=== PATIENT | male | born 1985 | race Caucasian/White ===

== ENCOUNTER 2020-11-06 16:53 | Emergency (ER) | payer BC, OTHER ==
--- OUTSIDE RECORDS SUMMARY | 2020-11-06 16:55 | XMS REPORT | Continuity of Care Document ---
:1985 Author Organization [facility] t Address [address] [place] [address] Dr. Lewis [address] [place] [id number] Care Team Providers Name Role Phone Leanne BOBO, C Attending Clinician Unavailable Pob1, [facility] Attending Clinician Unavailable Problems This patient has no known problems. Allergies, Adverse Reactions, Alerts This patient has no known allergies or adverse reactions. Medications This patient has no known medications. Procedures This patient has no known procedures. Encounters Start End Encounter Admission Attending Care Care Encounter Source Date/Time Date/Time Type Type Clinicians Facility Department ID 2019-07-02 2019-07-02 Telephone LUIS A Perdomo [id number] 00:00:00 00:00:00 Arline ANDRADE [id number] [facility] [id number] 2019-06-30 2019-06-30 Urgent Pob1, Acute [facility] [id number] 12:35:12 12:55:12 [facility] [id number] [place] [id number] [facility] [phone] [address]al [address] One Results This patient has no known results.
--- NOTE | 2020-11-06 18:33 | RAD REPORT ---
EXAM DESCRIPTION: RAD - Chest Pa And Lat (2 Views) - 11/06/2020 6:25 pm CLINICAL HISTORY: SOB Chest pain. COMPARISON: No comparisons FINDINGS: Moderate bilateral pulmonary opacities are present compatible with COVID-19 infection. The heart is normal in size. No displaced fractures.
[2020-11-06 20:25] LABS: Absolute Lymphocytes (CBC) 0.6 K/uL (0.7-4.9); Basophils % 0.3 % (0-1.3); Hematocrit 42.8 % (39.6-49.0); Lymphocytes % 12.7 % (15.3-44.8); MPV 8.4 fL (7.6-11.3)
[2020-11-06 20:30] LABS: Protime INR 1.19
[2020-11-06] MEDS ORDERED: NA CHLORIDE 0.9% 500 ML ONE (20:42)
[2020-11-06] MEDS ORDERED: ASPIRIN 81 MG CHEWABLE TABLET ONE (20:42)
[2020-11-06] MEDS ORDERED: CEFTRIAXONE/SWI 1gm 1 GM/10 ML SYR ONE (20:43)
[2020-11-06] MEDS ORDERED: FAMOTIDINE 20 MG/2 ML VIAL IV ONE (20:43)
[2020-11-06] MEDS ORDERED: IBUPROFEN 400 MG TAB ONE (21:51)
[2020-11-06] MEDS ORDERED: NA CHLORIDE 0.9% 1,000 ML ONE (21:51)
[2020-11-06] MEDS ORDERED: dexAMETHasone 10 MG/ML VIAL ONE (22:22)
[2020-11-06] MEDS ORDERED: ALBUTEROL INHALER 60 PUFF/8 GM IH ONE (22:22)
[2020-11-06 22:57] LABS: ALT/SGPT 37 U/L (12-78); AST/SGOT 49 U/L (15-37); Albumin 3.5 g/dL (3.4-5.0); Alkaline Phosphatase 62 U/L (45-117); BUN Blood Urea Nitrogen 14 mg/dL (7-18); Bicarbonate 26 mmol/L (21-32); Bilirubin Direct 0.1 mg/dL (0-0.2); Bilirubin Total 0.3 mg/dL (0.2-1.0); Ferritin 300.4 ng/mL (26-388); Glucose Level 103 mg/dL (74-106); NT PRO-BNP 14 pg/mL (<125); Potassium 3.9 mmol/L (3.5-5.1); Protein, Total 7.9 g/dL (6.4-8.2); Sodium Level 131 mmol/L (136-145); Troponin (Emerg Dept Use Only) < 0.02 ng/mL (0.0-0.045)
[2020-11-06] MEDS ORDERED: CASIRIVIMAB/IMDEVIMAB 10 ML in NA CHLORIDE 0.9% 250 ML IV ONE (23:45)
--- NOTE | 2020-11-07 00:06 | EDPHYS ---
Physician Documentation [facility] Name: Buddy Preciado Age: 35 yrs Sex: Male : 1985 Arrival Date: 11/06/2020 Time: 16:59 Bed 12 Private MD: ED Physician Josh Chin HPI: 11/06 21:46 This 35 yrs old Male presents to ER via Ambulatory with complaints of COVID+, claudia Breathing Difficulty. 21:46 The patient has shortness of breath with light activity. Onset: The symptoms/episode claudia began/occurred 7 day(s) ago. Duration: The symptoms are continuous, and are steadily getting worse. The patient's shortness of breath is aggravated by coughing. Associated signs and symptoms: The patient has no apparent associated signs or symptoms. Severity of symptoms: At their worst the symptoms were mild moderate in the emergency department the symptoms are unchanged. The patient has not experienced similar symptoms in the past. Historical: - Allergies: 18:11 No Known Allergies; kg - Home Meds: 18:11 None [Active]; kg - PMHx: 18:11 None; kg - PSHx: 18:11 None; kg - Immunization history:: Adult Immunizations not up to date, Client reports having NOT received the Covid vaccine. - Social history:: Smoking status: Patient denies any tobacco usage or history of. ROS: 21:49 Constitutional: Negative for fever, chills, and weight loss, Eyes: Negative for injury, claudia pain, redness, and discharge, ENT: Negative for injury, pain, and discharge, Neck: Negative for injury, pain, and swelling, Abdomen/GI: Negative for abdominal pain, nausea, vomiting, diarrhea, and constipation, Back: Negative for injury and pain, : Negative for injury, bleeding, discharge, and swelling, MS/Extremity: Negative for injury and deformity, Skin: Negative for injury, rash, and discoloration, Neuro: Negative for headache, weakness, numbness, tingling, and seizure, Psych: Negative for depression, anxiety, suicide ideation, homicidal ideation, and hallucinations, Allergy/Immunology: Negative for hives, rash, and allergies, Endocrine: Negative for neck swelling, polydipsia, polyuria, polyphagia, and marked weight changes, Hematologic/Lymphatic: Negative for swollen nodes, abnormal bleeding, and unusual bruising. 21:49 Cardiovascular: Positive for chest pain, palpitations. 21:49 Respiratory: Positive for cough, shortness of breath, on exertion. Exam: 21:49 Constitutional: This is a well developed, well nourished patient who is awake, alert, claudia and in no acute distress. Head/Face: Normocephalic, atraumatic. Eyes: Pupils equal round and reactive to light, extra-ocular motions intact. Lids and lashes normal. Conjunctiva and sclera are non-icteric and not injected. Cornea within normal limits. Periorbital areas with no swelling, redness, or edema. ENT: Nares patent. No nasal discharge, no septal abnormalities noted. Tympanic membranes are normal and external auditory canals are clear. Oropharynx with no redness, swelling, or masses, exudates, or evidence of obstruction, uvula midline. Mucous membranes moist. Neck: Trachea midline, no thyromegaly or masses palpated, and no cervical lymphadenopathy. Supple, full range of motion without nuchal rigidity, or vertebral point tenderness. No Meningismus. Chest/axilla: Normal chest wall appearance and motion. Nontender with no deformity. No lesions are appreciated. Abdomen/GI: Soft, non-tender, with normal bowel sounds. No distension or tympany. No guarding or rebound. No evidence of tenderness throughout. Back: No spinal tenderness. No costovertebral tenderness. Full range of motion. Male : Normal genitalia with no discharge or lesions. Skin: Warm, dry with normal turgor. Normal color with no rashes, no lesions, and no evidence of cellulitis. MS/ Extremity: Pulses equal, no cyanosis. Neurovascular intact. Full, normal range of motion. Neuro: Awake and alert, GCS 15, oriented to person, place, time, and situation. Cranial nerves II-XII grossly intact. Motor strength 5/5 in all extremities. Sensory grossly intact. Cerebellar exam normal. Normal gait. Psych: Awake, alert, with orientation to person, place and time. Behavior, mood, and affect are within normal limits. 21:49 Cardiovascular: Rate: tachycardic, Rhythm: regular, Pulses: Pulses are 4+ in bilateral radial, brachial, femoral, popliteal, posterior tibial and and dorsalis pedis arteries.. Heart sounds: normal, normal S1and S2, no S3 or S4, no murmur, no rub, no gallop, Edema: is not appreciated, JVD: is not appreciated. 21:49 ECG was reviewed by the Attending Physician. Vital Signs: 18:08 BP 126 / 75; Pulse 117; Resp 20; Temp 98.3(TE); Pulse Ox 94% on R/A; Weight 129.27 kg kg (R); Height 6 ft. 0 in. (182.88 cm); Pain 8/10; 20:45 BP 129 / 81; Pulse 118; Resp 20; Temp 100.4; Pulse Ox 93% on R/A; lp1 22:15 BP 113 / 81; Pulse 114; Resp 20; Temp 97.8; Pulse Ox 96% on 1 lpm NC; lp1 23:15 BP 108 / 76; Pulse 106; Resp 18; Temp 98; Pulse Ox 95% on 1 lpm NC; lp1 11/07 00:16 BP 116 / 73; Pulse 100; Resp 18; Temp 98; Pulse Ox 94% on 1 lpm NC; lp1 01:14 BP 100 / 63; Pulse 98; Resp 18; Pulse Ox 94% on 1 lpm NC; lp1 01:24 BP 105 / 63; Pulse 99; Resp 17; Temp 98; Pulse Ox 94% ; lp1 02:00 BP 109 / 65; Pulse 89; Resp 16; Pulse Ox 95% ; lp1 02:25 BP 115 / 68; Pulse 98; Resp 20; Pulse Ox 96% 1 lpm ; lp1 02:56 Pulse Ox 93% on R/A; lp1 03:33 BP 115 / 86; Pulse 87; Resp 19; Temp 98; Pulse Ox 96% on R/A; lp1 11/06 18:08 Body Mass Index 38.65 (129.27 kg, 182.88 cm) kg [place] Coma Score: 11/06 20:45 Eye Response: spontaneous(4). Verbal Response: oriented(5). Motor Response: obeys lp1 commands(6). Total: 15. MDM: 19:35 Patient medically screened. [facility] 11/07 00:01 Differential diagnosis: Anxiety Reaction asthma, Bronchitis CHF exacerbation, Chronic claudia Obstructive Pulmonary Disease pneumonia, pulmonary edema, Pulmonary Embolism reactive airway disease, Sepsis Unstable Angina. Antibiotic administration: The patient is discharged and will get outpatient antibiotics, Zithromax. The patient's Wells Deep Vein Thrombosis Score was calculated as follows: Heart Rate >100 BPM (1.5 Pts) Total Score: 0-2 Pts- Low Risk. The patient's pulmonary embolism risk score was calculated as follows: the patients heart rate is greater than 100 beats per minute (1.5 Pts) Total Score: 0-2 points. This patient was found to be at low risk for a pulmonary embolism by using the Well's assessment criteria. Immunization status:. Data reviewed: vital signs, nurses notes, lab test result(s), EKG, radiologic studies, CT scan, plain films. Data interpreted: nuclear monitoring technician: rate is 106 beats/min, rhythm is regular, Pulse oximetry: on room air is 95 %. Test interpretation: by ED physician or midlevel provider: ECG, plain radiologic studies. Counseling: I had a detailed discussion with the patient and/or guardian regarding: the historical points, exam findings, and any diagnostic results supporting the discharge/admit diagnosis, lab results, radiology results, the need for further work-up and treatment in the hospital. 00:04 Counseling: I had a detailed discussion with the patient and/or guardian regarding: the claudia need for outpatient follow up, for definitive care, a family practitioner, a bow rehairer. 11/06 19:47 Order name: Basic Metabolic Panel claudia 11/06 19:47 Order name: CBC with Diff; Complete Time: 21:43 claudia 11/06 19:47 Order name: LFT's; Complete Time: 22:58 claudia 11/06 19:47 Order name: Magnesium; Complete Time: 22:58 claudia 11/06 19:47 Order name: NT PRO-BNP; Complete Time: 22:58 claudia 11/06 19:47 Order name: PT-INR; Complete Time: 21:43 claudia 11/06 18:12 Order name: XRAY Chest Pa And Lat (2 Views); Complete Time: 21:43 kg 11/06 19:47 Order name: Troponin (emerg Dept Use Only); Complete Time: 22:58 claudia 11/06 19:47 Order name: CRP; Complete Time: 22:58 claudia 11/06 19:47 Order name: Ferritin; Complete Time: 22:58 claudia 11/06 19:47 Order name: D-Dimer; Complete Time: 21:43 claudia 11/06 19:48 Order name: Basic Metabolic Panel; Complete Time: 22:58 EDMS 11/06 19:47 Order name: EKG; Complete Time: 19:48 [facility] 11/06 19:47 Order name: Cardiac monitoring; Complete Time: 20:17 [facility] 11/06 19:47 Order name: EKG - Nurse/Tech; Complete Time: 20:17 [facility] 11/06 19:47 Order name: IV Saline Lock; Complete Time: 20:17 [facility] 11/06 19:47 Order name: Labs collected and sent; Complete Time: 20:17 [facility] 11/06 19:47 Order name: O2 Per Protocol; Complete Time: 20:17 [facility] 11/06 19:47 Order name: O2 Sat Monitoring; Complete Time: 20:17 [facility] EC/10 21:49 Rate is 112 beats/min. Rhythm is regular. QRS Gordon is Normal. MN interval is normal. [facility] QRS interval is normal. QT interval is normal. No Q waves. T waves are Normal. No ST changes noted. Clinical impression: NSR w/ Non-specific ST/T Changes and No evidence of ischemia. Interpreted by me. Reviewed by me. Administered Medications: 11/07 02:26 Discontinued: REGEN-COV Dose Pack 120 mg/mL-120 mg/mL (EUA) 1 vials IV at per protocol lp1 once 11/06 19:47 Drug: NS 0.9% 500 ml Route: IV; Rate: bolus; Site: right antecubital; lp1 20:30 Drug: Rocephin (cefTRIAXone) 1 grams Route: IV; Rate: per protocol; Site: right lp1 antecubital; 22:35 Follow up: IV Status: Completed infusion lp1 20:30 Drug: Pepcid (famotidine) 20 mg Route: IVP; Site: right antecubital; lp1 22:36 Follow up: Response: No adverse reaction; Nausea is decreased lp1 20:30 Drug: Aspirin Chewable Tablet 162 mg Route: PO; lp1 11/07 00:07 Follow up: Response: No adverse reaction [facility] 11/06 21:27 Not Given (med not availablee): Ivermectin 12 mg PO once; as a single dose lp1 21:30 Drug: NS 0.9% 1000 ml Route: IV; Rate: 125 ml/hr; Site: right antecubital; lp1 21:30 Drug: Motrin (ibuprofen) 800 mg Route: PO; lp1 11/07 00:07 Follow up: Response: No adverse reaction; Marked relief of symptoms lp1 11/06 22:16 Drug: Decadron - Dexamethasone 10 mg Route: IVP; Site: right antecubital; lp1 11/07 00:07 Follow up: Response: No adverse reaction; Marked relief of symptoms lp1 11/06 22:16 Drug: Albuterol HFA Inhaler 4 puffs Route: Inhalation; lp1 11/07 00:07 Follow up: Response: No adverse reaction lp1 01:01 Drug: REGEN-COV Dose Pack 120 mg/mL-120 mg/mL (EUA) 1 vials Route: IV; Rate: per lp1 protocol; Site: right antecubital; 02:24 Follow up: IV Status: Completed infusion; IV Intake: 250ml lp1 02:27 Follow up: Response: No adverse reaction; IV Status: Completed infusion lp1 02:33 Drug: Zithromax (azithromycin) 500 mg Route: IVPB; Infused Over: 1 hrs; Site: right lp1 antecubital; 03:29 Follow up: IV Status: Completed infusion lp1 03:29 Follow up: Response: No adverse reaction lp1 03:35 Follow up: IV Status: Completed infusion lp1 Disposition Summary: 11/07/20 00:05 Discharge Ordered Location: Home claudia Problem: new claudia Symptoms: have improved claudia Condition: Fair claudia Diagnosis - Pneumonia due to SARS-associated coronavirus claudia - Dyspnea lcaudia - Other obesity claudia - Fever, unspecified claudia Followup: claudia - With: Private Physician - When: 2 - 3 days - Reason: Recheck today's complaints, Continuance of care, Re-evaluation by your physician Followup: claudia - With: - When: 2 - 3 days - Reason: Recheck today's complaints, Continuance of care, Re-evaluation by your physician Discharge Instructions: - Discharge Summary Sheet claudia - Fever, Adult claudia - Community-Acquired Pneumonia, Adult claudia - Aspirin and Your Heart claudia - Fever, Adult, [id number] claudia - Obesity, Adult claudia - COVID-19 claudia - Viral Illness, Adult claudia Forms: - Medication Reconciliation Form claudia - Thank You Letter claudia - Antibiotic Education claudia - Prescription Opioid Use claudia Prescriptions: - albuterol sulfate 90 mcg/actuation Inhalation HFA aerosol inhaler - inhale 2 puff by INHALATION route every 4-6 hours; 1 Pump; Refills: 0, Product claudia Selection Permitted - dexamethasone 2 mg Oral tablet - take 1 tablet by ORAL route 3 times per day; 15 tablet; Refills: 0, Product claudia Selection Permitted - ivermectin 3 mg Oral tablet - take 4 tablet by ORAL route once daily; 20 tablet; Refills: 0, Product claudia Selection Permitted - Pepcid 20 mg Oral Tablet - take 1 tablet by ORAL route every 12 hours for 10 days; 30 tablet; Refills: 0, [facility] Product Selection Permitted - Zithromax 500 mg Oral Tablet - take 1 tablet by ORAL route once daily for 5 days; 5 tablet; Refills: 0, [facility] Product Selection Permitted Signatures: Dispatcher [employer] Josh Persaud MD MD cha Pena, Laura, RN RN lp1 Laure Couch RN RN kg Corrections: (The following items were deleted from the chart) 11/06 19:51 19:48 Chest Single View+RAD.[id number].[email or web address] ordered. ALISIA CRUMP
--- NOTE | 2020-11-07 00:06 | ER ---
Nurse's Notes [facility] Name: Buddy Preciado Age: 35 yrs Sex: Male : 1985 Arrival Date: 11/06/2020 Time: 16:59 Bed 12 Private MD: Diagnosis: Pneumonia due to SARS-associated coronavirus;Dyspnea;Other obesity;Fever, unspecified Presentation: 11/06 18:08 Chief complaint: Patient states: Chest pressure, Cough, vomiting, nausea, Abdominal, kg body aches x 9 days. Coronavirus screen: Client denies travel out of the [place] in the last 14 days. At this time, unable to obtain information related to travel outside the [place] Client presents with at least one sign or symptom that may indicate coronavirus-19. Standard/surgical mask placed on the client. Provider contacted for isolation considerations. Client reports previous positive COVID test result. Date of collection: October 31, 2020. Ebola Screen: Patient negative for fever greater than or equal to 101.5 degrees Fahrenheit, and additional compatible Ebola Virus Disease symptoms Patient denies exposure to infectious person. Patient denies travel to an Ebola-affected area in the 21 days before illness onset. Initial Sepsis Screen: Does the patient meet any 2 criteria? No. Patient's initial sepsis screen is negative. Does the patient have a suspected source of infection? No. Patient's initial sepsis screen is negative. Risk Assessment: Do you want to hurt yourself or someone else? Patient reports no desire to harm self or others. Onset of symptoms was October 29, 2020. 18:08 Method Of Arrival: Ambulatory kg 18:08 Acuity: [place] 4 kg Triage Assessment: 18:11 General: Appears in no apparent distress. Behavior is calm, cooperative, quiet. Pain: kg Complains of pain in abdomen. Respiratory: Reports shortness of breath at rest on exertion Onset: The symptoms/episode began/occurred gradually, the patient has mild shortness of breath. 18:11 GI: Reports lower abdominal pain, upper abdominal pain, diarrhea, intolerance of food, kg nausea, vomiting. Historical: - Allergies: 18:11 No Known Allergies; kg - Home Meds: 18:11 None [Active]; kg - PMHx: 18:11 None; kg - PSHx: 18:11 None; kg - Immunization history:: Adult Immunizations not up to date, Client reports having NOT received the Covid vaccine. - Social history:: Smoking status: Patient denies any tobacco usage or history of. Screenin:00 Abuse screen: Denies threats or abuse. Denies injuries from another. Nutritional lp1 screening: No deficits noted. Tuberculosis screening: No symptoms or risk factors identified. Fall Risk None identified. Assessment: 20:57 General: Appears uncomfortable, obese. Pain: Complains of pain in abdomen. Neuro: No lp1 deficits noted. Respiratory: Reports shortness of breath cough that is labored breathing. GI: Reports diarrhea, vomiting. : No deficits noted. 21:28 Cardiovascular: Rhythm is sinus tachycardia. Respiratory: Reports Respiratory effort is lp1 labored, Breath sounds with wheezes Onset: The symptoms/episode began/occurred 9 days ago per patient, the patient has severe shortness of breath. EENT: No deficits noted. Derm: No deficits noted. Musculoskeletal: No deficits noted. 21:50 Respiratory: patient room air sat 93%. Placed on 1 liter nc o2 at this time per MD lp1 verbal order. oxygen sats 96% after nasal cannula placement. 23:17 Reassessment: Patient and/or family updated on plan of care and expected duration. Pain lp1 level reassessed. Patient is alert, oriented x 3, equal unlabored respirations, skin warm/dry/pink. Patient states feeling better. Patient states symptoms have improved. Respiratory: Airway is patent Respiratory pattern is regular, Denies. 11/07 03:34 Reassessment: Patient states symptoms have improved. lp1 Vital Signs: 11/06 18:08 BP 126 / 75; Pulse 117; Resp 20; Temp 98.3(TE); Pulse Ox 94% on R/A; Weight 129.27 kg kg (R); Height 6 ft. 0 in. (182.88 cm); Pain 8/10; 20:45 BP 129 / 81; Pulse 118; Resp 20; Temp 100.4; Pulse Ox 93% on R/A; lp1 22:15 BP 113 / 81; Pulse 114; Resp 20; Temp 97.8; Pulse Ox 96% on 1 lpm NC; lp1 23:15 BP 108 / 76; Pulse 106; Resp 18; Temp 98; Pulse Ox 95% on 1 lpm NC; lp1 11/07 00:16 BP 116 / 73; Pulse 100; Resp 18; Temp 98; Pulse Ox 94% on 1 lpm NC; lp1 01:14 BP 100 / 63; Pulse 98; Resp 18; Pulse Ox 94% on 1 lpm NC; lp1 01:24 BP 105 / 63; Pulse 99; Resp 17; Temp 98; Pulse Ox 94% ; lp1 02:00 BP 109 / 65; Pulse 89; Resp 16; Pulse Ox 95% ; lp1 02:25 BP 115 / 68; Pulse 98; Resp 20; Pulse Ox 96% 1 lpm ; lp1 02:56 Pulse Ox 93% on R/A; lp1 03:33 BP 115 / 86; Pulse 87; Resp 19; Temp 98; Pulse Ox 96% on R/A; lp1 11/06 18:08 Body Mass Index 38.65 (129.27 kg, 182.88 cm) kg Vitals: 11/06 20:45 Cardiac Rhythm Assessment Sinus tach. lp1 [place] Coma Score: 20:45 Eye Response: spontaneous(4). Verbal Response: oriented(5). Motor Response: obeys lp1 commands(6). Total: 15. ED Course: 16:59 Patient arrived in ED. mr 18:11 Triage completed. kg 18:11 Arm band placed on. kg 18:25 XRAY Chest Pa And Lat (2 Views) In Process Unspecified. EDMS 19:35 Josh Chin MD is Attending Physician. claudia 19:49 Katiuska Mendez, RN is Primary Nurse. lp1 20:17 Basic Metabolic Panel Sent. lp1 21:01 Inserted saline lock: 20 gauge in right antecubital area, using aseptic technique. lp1 Blood collected. 11/07 00:05 Venkat Gardner MD is Referral Physician. claudia 03:00 Patient has correct armband on for positive identification. lp1 03:30 No provider procedures requiring assistance completed. lp1 03:33 Patient did not have IV access during this emergency room visit. bleeding controlled, lp1 No redness/swelling at site. Pressure dressing applied. Administered Medications: 02:26 Discontinued: REGEN-COV Dose Pack 120 mg/mL-120 mg/mL (EUA) 1 vials IV at per protocol lp1 once 11/06 19:47 Drug: NS 0.9% 500 ml Route: IV; Rate: bolus; Site: right antecubital; lp1 20:30 Drug: Rocephin (cefTRIAXone) 1 grams Route: IV; Rate: per protocol; Site: right lp1 antecubital; 22:35 Follow up: IV Status: Completed infusion lp1 20:30 Drug: Pepcid (famotidine) 20 mg Route: IVP; Site: right antecubital; lp1 22:36 Follow up: Response: No adverse reaction; Nausea is decreased lp1 20:30 Drug: Aspirin Chewable Tablet 162 mg Route: PO; lp1 11/07 00:07 Follow up: Response: No adverse reaction lp1 11/06 21:27 Not Given (med not availablee): Ivermectin 12 mg PO once; as a single dose lp1 21:30 Drug: NS 0.9% 1000 ml Route: IV; Rate: 125 ml/hr; Site: right antecubital; lp1 21:30 Drug: Motrin (ibuprofen) 800 mg Route: PO; lp1 11/07 00:07 Follow up: Response: No adverse reaction; Marked relief of symptoms lp1 11/06 22:16 Drug: Decadron - Dexamethasone 10 mg Route: IVP; Site: right antecubital; lp1 11/07 00:07 Follow up: Response: No adverse reaction; Marked relief of symptoms lp1 11/06 22:16 Drug: Albuterol HFA Inhaler 4 puffs Route: Inhalation; lp1 11/07 00:07 Follow up: Response: No adverse reaction lp1 01:01 Drug: REGEN-COV Dose Pack 120 mg/mL-120 mg/mL (EUA) 1 vials Route: IV; Rate: per lp1 protocol; Site: right antecubital; 02:24 Follow up: IV Status: Completed infusion; IV Intake: 250ml lp1 02:27 Follow up: Response: No adverse reaction; IV Status: Completed infusion lp1 02:33 Drug: Zithromax (azithromycin) 500 mg Route: IVPB; Infused Over: 1 hrs; Site: right lp1 antecubital; 03:29 Follow up: IV Status: Completed infusion lp1 03:29 Follow up: Response: No adverse reaction lp1 03:35 Follow up: IV Status: Completed infusion lp1 Intake: 02:24 IV: 250ml; Total: 250ml. lp1 Outcome: 00:05 Discharge ordered by . claudia 03:30 Discharged to home ambulatory. lp1 03:30 Condition: good 03:30 Discharge instructions given to patient, Instructed on discharge instructions, follow up and referral plans. medication usage, Demonstrated understanding of instructions, follow-up care, medications, Prescriptions given X x5 03:39 Patient left the ED. lp1 Signatures: Dispatcher [employer] EDTX Josh Chin MD MD cha Rivera, Mary mr Katiuska Mendez RN RN lp1 Laure Couch RN RN kg
[2020-11-07] MEDS ORDERED: NA CHLORIDE 0.9% 250 ML ONE (01:57)
[2020-11-07] MEDS ORDERED: AZITHROMYCIN 500 MG INJ IVPB ONE (01:57)
[2020-11-07] MEDS ORDERED: NA CHLORIDE 0.9% 50 ML ONE (02:37)
[2020-11-07 03:58] VITALS: TEMP 98
[2020-11-07 04:11] VITALS: BP 115/86; O2SAT 96
--- NOTE | 2020-11-07 07:32 | EKG ---
Test Date: 2020-11-06 Test Time: 20:40:10 Emergency Medicine Physician: BEKA MEASUREMENT RESULTS: Intervals: Rate: 118 UT: 144 QRSD: 76 QT: 318 QTc: 445 [place]: P: 41 UT: 144 QRS: 46 T: 38 INTERPRETIVE STATEMENTS: Sinus tachycardia Otherwise normal ECG No previous ECG available for comparison Electronically Signed On 11-07-20 07:31:00 CDT by Dominic Barton
--- NOTE | 2020-11-07 13:01 | EKG ---
Test Date: 2020-11-06 Test Time: 20:42:39 Chemical Process Operator: BEKA MEASUREMENT RESULTS: Intervals: Rate: 112 KS: 146 QRSD: 72 QT: 296 QTc: 404 [place]: P: 51 KS: 146 QRS: 43 T: 42 INTERPRETIVE STATEMENTS: Sinus tachycardia Nonspecific T wave abnormality Abnormal ECG Compared to ECG 11/06/2020 20:40:10 T-wave abnormality now present Electronically Signed On 11-07-20 12:59:23 CDT by Dominic Barton
== END 2020-11-07 03:39 | disposition home or self-care (01) ==
LOC: ER 16:53
DX: U07.1 COVID-19 (principal); J12.82 Pneumonia due to coronavirus disease 2019; R50.9 Fever, unspecified; E66.8 Other obesity
CPT/HCPCS: 96365; 96367; 93005 ×2; 85025; 80048; 36415; 83735; 85610; 85379; 80076; 84484; 82728; 83880; 86140; 71046; 96375; 99285; 96366; J0456; J1100; J0696; J7050 ×2; J7040; J7030